=== PATIENT | male | born 1975 | race Caucasian/White ===

== ENCOUNTER 2016-05-29 06:45 | Day surgery (SDC) | payer OTHER ==
[~2016-05-29 06:45] MED LIST: ACETAMINOPHEN 500 MG TABLET PO PRN; HYDROmorphone HCL 2 MG/ML VIAL IV PRN; MAG HYDROX/ALUMINUM HYD/SIMETH 30 ML UDC PO PRN; MAGNESIUM HYDROXIDE 30 ML UDC PO PRN; ONDANSETRON HCL/PF 2 MG/ML VIAL IV PRN; PROMETHAZINE HCL 25 MG in DEXTROSE 5 % IN WATER 50 ML IV PRN; RINGERS SOLUTION,LACTATED 1,000 ML IV PRN; ZOLPIDEM TARTRATE 5 MG TABLET PO PRN; ceFAZolin SODIUM 1 GM VIAL IV PRN; diphenhydrAMINE HCL 50 MG/ML VIAL IV PRN; oxyCODONE HCL/ACETAMINOPHEN 1 TAB TABLET PO PRN
--- OUTSIDE RECORDS SUMMARY | 2016-05-29 06:49 | XMS REPORT | Continuity of Care Document ---
:1975 Author Organization [facility] Address [place] [address] Care Team Providers Name Role Phone Unavailable Primary Care Provider Unavailable Source Comments This disclosure is being made pursuant to the [employer] program and maynot contain all information available regarding this patient.[facility] Active Allergies and Adverse Reactions Not on File Current Medications Be aware that medications may not be up to date as of this document. Alwaysverify current medications with the patient. Not on file Active Problems Not on file Immunizations Name Dates Previously Given Next Due Hepatitis B Influenza Split 01/23/2006 Influenza, Inactivated, Trivalent, 3 years and older, 01/08/2011 single dose syringe MMR Tdap 01/08/2011 Social History Tobacco Use Types Packs/Day Years Used Date Former Smoker Last Filed Vital Signs Vital Sign Reading Time Taken Blood Pressure 132/90 10/29/2011 9:37 AM CDT Pulse 85 10/29/2011 9:37 AM CDT Temperature 36.2 C (97.1 F) 10/29/2011 9:37 AM CDT Respiratory Rate - - Height 1.905 m (6' 3") 10/29/2011 9:37 AM CDT Weight 160.75 kg (354 lb 6.2 oz) 10/29/2011 9:37 AM CDT Body Mass Index 44.3 10/29/2011 9:37 AM CDT Oxygen Saturation - - Plan of Care Health Maintenance Due Date Last Done Comments Influenza Immunization (#1) 2015 01/08/2011, 01/23/2006 Tetanus/Pertussis (2 - Td) 01/08/2021 01/08/2011 Results from Last 3 Months Not on file
--- OUTSIDE RECORDS SUMMARY | 2016-05-29 06:49 | XMS REPORT | Continuity of Care Document ---
:1975 Author Organization [facility] ([facility]) [place] [address] Phone [phone] Care Team Providers Name Role Phone Unavailable Primary Care Provider Unavailable Source Comments This disclosure is being made pursuant to the Care Everywhere program, applicable federal and state laws, and may not contain all informaitonavailable regarding this patient.[facility] ([facility]) Active Allergies and Adverse Reactions Not on File Current Medications Not on file Active Problems Not on file Most Recent Encounters Date Type Specialty Providers Description 03/18/2016 Ancillary Orders Radiology Zhanna Christianson FNP Dx: Left shoulder pain, unspecified chronicity (Primary Dx) Social History Tobacco Use Types Packs/Day Years Used Date Never Assessed Plan of Care Health Maintenance Due Date Last Done Comments Hepatitis B Vaccine (1 of 3 - Primary Series) 1975 Tdap Vaccine 02/18/1984 Lipid Disorder Screening 1991 MMR Vaccine 1991 Td Vaccine 1991 Influenza Vaccine: Seasonal (#1) 10/14/2015 Results from Last 3 Months Not on file
[2016-05-29] MEDS ORDERED: FAMOTIDINE 20 MG in DEXTROSE 5 % IN WATER 100 ML IV ONE ×2 (07:10)
[2016-05-29] MEDS ORDERED: RINGERS SOLUTION,LACTATED 1,000 ML IV ONE ×2 (07:20→09:35)
--- NOTE | 2016-05-29 09:35 | OR ---
Operative Report - Dictated Report Narrative: Date: 05/29/2016 Physician: Roberto Edwards M.D. Catheterization Laboratory Technician: Mo Lara PA-C Preoperative diagnosis: Left Shoulder anterior labral tear Postoperative diagnosis: Left Shoulder anterior labral tear Procedure: Left shoulder arthroscopy with anterior labral repair Anesthesia: General plus regional Complications: None Estimated blood loss: Minimal Specimens: None Retained implants: [employer] bio Raptor peek 2.3 mm straight anchor 2 Drains: None Indications: Mr. Puga Is a 41 year-old male who has been followed in my clinic with complaints of shoulder pain consistent anterior labral pain after a work- related injury. Physical exam and diagnostic imaging were consistent with his complaints and concern for anterior labral tear. Conservative measures have failed including, but not limited to, passage of time, activity modification, medications, physical therapy/home exercise program, or injections. The risks, benefits, and alternatives were discussed in clinic. The risks being , bleeding, infection, blood clots, nerve, tendon, ligament, blood vessel injury, persistent pain, arthrosis, stiffness, need for prolonged therapy, need for additional procedures, and persistent symptoms. Consent was obtained in the clinic. Procedure: After marking the correct extremity in the preoperative holding area, a timeout was performed in the operating room. IV antibiotics consisting of Ancef were administered prior to the procedure. A general followed by regional anesthetic was induced by the nurse rail layer. This was in the supine position, then the patient was transitioned to a beachchair position with all bony prominences well-padded, head in neutral, the nonoperative arm well supported, and the legs padded with SCDs in place. The operative shoulder was then prepped and draped in a standard sterile fashion. Preoperatively the shoulder had full passive range of motion, and no gross instability. After marking out the bony landmarks , saline was infused into the joint through a posterior lateral portal site. A frederick incision was made, and the blunt trocar and cannula was introduced into the shoulder joint. An accessory portal was placed in the rotator cuff interval using a spinal needle for guidance. Upon initial evaluation, the biceps tendon showed minimal tendinopathy and no tear. The middle glenohumeral ligament was thin but intact. Subscapularis tendon was and unremarkable. The glenoid showed no arthrosis or Bankart. The humeral head articular surface showed no arthrosis or Hill-Sachs. The anterior labrum was torn from approximately the 8 o'clock position to the 11 o'clock position. The superior labrum was intact. The pouch was and unremarkable. The posterior labrum was intact. The supraspinatus tendon was and unremarkable. The infraspinatus tendon was unremarkable. Utilizing an accessory anterior portal, the anterior labral tissue was debrided off the anterior glenoid and the anterior glenoid was roughened using a rasp and shaver. 2 straight anchors were placed at approximately the 9 and 10:00 positions. A passing device was utilized in order to place the suture around the labrum. This was then tied from inferior to superior with the knots away from the joint. This resulted in stabilization and no lift off of the anterior labrum with range of motion or probing. The remaining shoulder joint is otherwise unremarkable at this point. Attention was then turned to the subacromial space. Subacromial bursectomy was performed utilizing the prior portals. The coracoacromial ligament was unremarkable. The bursal side of the rotator cuff demonstrated no tear. The acromial arch was unremarkable. The portal sites were closed with interrupted nylon. Dressings consisting of Xeroform, 4 x 4, ABD, soft roll, and tape were applied. All sponge, needle, blade, and instrument counts were correct prior to closing the wounds. The patient was awoken and transferred to the postanesthesia care unit in stable condition.
[2016-05-29 11:12] VITALS: BP 134/88
[2016-05-29] MEDS ORDERED: SENNOSIDES/DOCUSATE SODIUM 1 TAB TABLET PO SCH (21:00)
== END 2016-05-29 06:46 | disposition home or self-care (01) ==
LOC: AMB 06:45
PROVIDERS: ATTEND Orthopaedic Surgery
PROC: 0MM24ZZ Reattachment of Left Shoulder Bursa and Ligament, Percutaneous Endoscopic Approach (ICD-10-PCS; principal; 2016-05-29 08:00)
DX: S43.492A Other sprain of left shoulder joint, initial encounter (principal); I10 Essential (primary) hypertension; F17.200 Nicotine dependence, unspecified, uncomplicated; Z68.42 Body mass index [BMI] 45.0-49.9, adult